=== PATIENT | female | born 1985 | race Two or more races ===

== ENCOUNTER 2020-03-25 11:39 | Outpatient (CLI) | payer OTHER | END 2020-03-25 11:53 | disposition home or self-care (01) | LOC: RX STUDY 11:39 | DX: N97.8 Female infertility of other origin (principal) ==

== ENCOUNTER → 2020-08-10 | Outpatient (CLI) | payer OTHER | END | disposition home or self-care (01) | LOC: RX STUDY 09:00 | DX: N97.9 Female infertility, unspecified (principal) ==